=== PATIENT | female | born 1980 | race Caucasian/White ===

== ENCOUNTER 2024-08-11 16:21 | Emergency (ER) | payer OTHER ==
[~2024-08-11] VITALS: Ht 170.2 cm; Wt 63.5 kg
[2024-08-11 17:21] LABS: BASOPHILS % (AUTO) 0.4 % (0.0-2.0); DIFFERENTIAL COMMENT 0; EOSINOPHILS % (AUTO) 0.5 % (0.0-7.0); HEMATOCRIT 33.7 % (31.2-41.9); HEMOGLOBIN 11.6 g/dL (10.9-14.3); LYMPHOCYTES # (AUTO) 1.6 K/uL (0.8-4.8); LYMPHOCYTES % (AUTO) 18.4 % (20.5-51.5); MEAN CORPUSCULAR HEMOGLOBIN 34.5 uug (24.7-32.8); MEAN CORPUSCULAR HGB CONC 34 g/dL (32.3-35.6); MEAN CORPUSCULAR VOLUME 100.4 fL (75.5-95.3); MONOCYTES # (AUTO) 0.6 K/uL (0.1-1.30); MONOCYTES % (AUTO) 7.4 % (0.0-11.0); NEUTROPHILS # (AUTO) 6.3 K/uL (1.8-8.9); NEUTROPHILS % (AUTO) 73.3 % (38.5-71.5); PLATELET COUNT (AUTO) 155 K/uL (179-408); RED BLOOD CELL COUNT(AUTO) 3.36 MIL/uL (3.63-4.92); RED CELL DISTRIBUTION WIDTH 15.2 % (12.3-17.7); WHITE BLOOD COUNT (AUTO) 8.6 K/uL (3.8-11.8)
[2024-08-11 17:26] LABS: AMMONIA 16 umol/L (11-32)
[2024-08-11 17:27] LABS: ETHANOL 510 MG/DL (0-10)
[2024-08-11 17:33] LABS: ALANINE AMINOTRANSFERASE 87 U/L (14-59); ALBUMIN 3.4 g/dL (3.4-5.0); ALKALINE PHOSPHATASE 77 U/L (50-136); ASPARTATE AMINOTRANSFERASE 77 U/L (15-37); BILIRUBIN,DIRECT 0.2 mg/dL (0.0-0.2); BILIRUBIN,TOTAL 0.5 mg/dL (0.2-1.0); CALCIUM 8.2 mg/dL (8.5-10.1); CARBON DIOXIDE 28 mmol/L (21-32); CHLORIDE 101 mmol/L (98-107); CREATININE 0.6 mg/dL (0.6-1.3); GLUCOSE 121 mg/dL (74-106); POTASSIUM 3.5 mmol/L (3.5-5.1); SODIUM SERUM 140 mmol/L (136-145); TOTAL PROTEIN, SERUM 6.6 g/dL (6.4-8.2); UREA NITROGEN, BLOOD 6 mg/dL (7-18)
[2024-08-11 17:37] LABS: ACETAMINOPHEN < 2.0 ug/mL (10-30)
[2024-08-11 18:13] LABS: *BILIRUBIN,URIN NEGATIVE (NEGATIVE); *CLARITY,URINE CLEAR (CLEAR); *COLOR,URINE YELLOW (YELLOW); *KETONES,URINE NEGATIVE (NEGATIVE); *PROTEIN,URINE NEGATIVE (NEGATIVE); *UROBILINOGEN,URINE 0.2 E.U./dl (NORMAL); LEUKOCYTE ESTERASE ,URINE NEGATIVE (NEGATIVE); NITRITE, URINE NEGATIVE (NEGATIVE); PH,URINE 6.5 (5.0-8.0); UGLUCOSE NEGATIVE (NEGATIVE)
[2024-08-11 18:15] LABS: *BLOOD, URINE NEGATIVE (NEGATIVE)
[2024-08-11 18:16] LABS: *URINE HCG, QUAL NEGATIVE (NEGATIVE)
[2024-08-11 18:22] LABS: *AMPHETAMINE, URINE NEGATIVE (NEGATIVE); *BARBITURATE, URINE NEGATIVE (NEGATIVE); *BENZODIAZEPINE, URINE POSITIVE (NEGATIVE); *CANNABINOID, URINE NEGATIVE (NEGATIVE); *COCCAINE, URINE NEGATIVE (NEGATIVE); *OPIATE, URINE NEGATIVE (NEGATIVE); *PHENCYCLIDINE SCREEN,URINE NEGATIVE (NEGATIVE); FENTANYL, URINE NEGATIVE (NEGATIVE)
[2024-08-11 20:05] VITALS: O2SAT 93
[2024-08-12] MEDS ORDERED: MIRTAZAPINE 15 MG TABLET ONE (01:07)
[2024-08-12] MEDS: MIRTAZAPINE 15 MG TABLET PO ONE (01:08)
[2024-08-12] MEDS ORDERED: LORAZEPAM 1 MG TABLET ONE (02:57)
[2024-08-12] MEDS: LORAZEPAM 0.5 MG TABLET PO ONE (02:58)
== END 2024-08-12 03:18 | disposition short-term general hospital (02) ==
LOC: ER 16:21
DX: F10.129 Alcohol abuse with intoxication, unspecified (principal); R00.0 Tachycardia, unspecified; R45.1 Restlessness and agitation; M54.2 Cervicalgia; R10.2 Pelvic and perineal pain; R51.9 Headache, unspecified
CPT/HCPCS: 36415; 70450; 71045; 72125; 84484; 84703; 85025; 85730; 93005; A4606; A4663; G0480